=== PATIENT | male | born 1990 | race Caucasian/White ===

== ENCOUNTER 2024-04-07 07:01 | Outpatient (CLI) | payer OTHER, SELFPAY ==
[2024-04-07 07:41] LABS: Hematocrit 45.4 % (42.0-52.0); Mean Corpuscular Hemoglobin 28.7 pg (26-34); Mean Corpuscular Volume 86.8 fl (80-100); Mean Platelet Volume 10.1 fl (7.4-10.4); Platelet Count Result 156 k/mm3 (150-375); Red Blood Count 5.23 M/mm3 (4.6-6.20)
[2024-04-07 07:57] LABS: Anion Gap 5 mmol/L (4-12); Blood Urea Nitrogen 15 mg/dL (9-20); Calcium 9.1 mg/dL (8.4-10.2); Carbon Dioxide 30 mmol/L (22-30); Chloride 103 mmol/L (98-107); Cholesterol 177 mg/dL (0-200); Estimated Glomerular Filt Rate > 60; Glucose 145 mg/dL (65-110); HDL Direct 42 mg/dL; Potassium 4.4 mmol/L (3.4-5.0); Sodium 138 mmol/L (137-145); Triglycerides 111 mg/dL (<150)
[2024-04-07 08:08] LABS: LDL Cholesterol Direct 120 mg/dL
== END 2024-04-07 07:02 | disposition home or self-care (01) ==
LOC: ANHLAB 07:03
PROVIDERS: PCP Family Medicine; Visit Provider Family Medicine
DX: I10 Essential (primary) hypertension (principal); Z13.220 Encounter for screening for lipoid disorders
CPT/HCPCS: 36415; 80048; 80061; 84443; 85027

== ENCOUNTER 2024-04-14 07:02 | Outpatient (CLI) | payer OTHER, SELFPAY ==
[2024-04-14 08:40] LABS: Hemoglobin A1C 6.7 % (<5.7)
== END 2024-04-14 07:03 | disposition home or self-care (01) ==
PROVIDERS: PCP Family Medicine; Visit Provider Nurse Practitioner Family
DX: R73.09 Other abnormal glucose (principal)
CPT/HCPCS: 36415; 83036

== ENCOUNTER 2024-05-13 10:39 | Outpatient (RCR) | payer OTHER, SELFPAY | END 2024-08-02 10:29 | disposition home or self-care (01) | LOC: ANHDMC 10:39 | PROVIDERS: PCP Family Medicine; Visit Provider Family Medicine | DX: E11.9 Type 2 diabetes mellitus without complications (principal); Z71.89 Other specified counseling | CPT/HCPCS: G0108 ==